=== PATIENT | female | born 1960 | race Caucasian/White ===

== ENCOUNTER 2019-11-29 07:43 | Outpatient (CLI) | payer OTHER, SELFPAY ==
--- NOTE | 2019-11-29 07:45 | MM_ITS ---
WS: [id number] BILATERAL DIGITAL SCREENING MAMMOGRAPHY WITH CAD CLINICAL INFORMATION: SCREENING HISTORY: Screening mammogram. No current complaints. COMPARISON: TECHNIQUE: Bilateral CC and MLO views. FINDINGS: Scattered fibroglandular densities bilaterally. No suspicious focal mass, asymmetry, calcifications, or architectural distortion. No evidence of malignancy. MM/[place] [id number] IMPRESSION: BI-RADS: 1-Negative FOLLOW UP: 1 Year Follow-up Recommend return to annual screening mammography.
== END 2019-11-29 07:44 | disposition home or self-care (01) ==
LOC: RADSHAW 07:44
PROVIDERS: PCP Nurse Practitioner; Visit Provider Nurse Practitioner
DX: Z12.31 Encounter for screening mammogram for malignant neoplasm of breast (principal)
CPT/HCPCS: 77067

== ENCOUNTER 2020-06-17 13:08 | Inpatient (IN) | payer OTHER, SELFPAY ==
[2020-06-17] VITALS (10 sets, daily range): BP systolic 87–115; BP diastolic 52–67; PULSE 62–102; RESP 14–26; TEMP 36.6–37.8; O2SAT 94–100; BMI 26.6
[2020-06-17 16:28] LABS: Add Urine Microscopic? NO
[2020-06-17 16:53] LABS: Bilirubin Urine Neg (Negative); Blood Urine Neg (Negative); Glucose Urine UA Norm (Normal); Ketones Urine 1+ (Negative); Leukocyte Esterase Urine Negative (Negative); Nitrate Urine Negative (Negative); Protein Urine Neg (Negative); Urine Appearance Clear (CLEAR); Urine Color Yellow (Yellow); Urobilinogen Urine Norm (Negative); pH Urine 5 (5-7)
--- NOTE | 2020-06-17 17:00 | CTR_ITS ---
PROCEDURE INFORMATION: Exam: CT Abdomen And Pelvis With Contrast Exam date and time: 06/17/2020 5:12 PM Age: 59 years old Clinical indication: Nausea; Abdominal pain; Localized; Right lower quadrant (rlq); Prior surgery; Surgery type: Partial hyst, bladder; Additional info: Abd pain TECHNIQUE: Imaging protocol: Computed tomography of the abdomen and pelvis with contrast. Radiation optimization: All CT scans at this facility use at least one of these dose optimization techniques: automated exposure control; mA and/or kV adjustment per patient size (includes targeted exams where dose is matched to clinical indication); or iterative reconstruction. Contrast material: OMNI 300; Contrast volume: 95 ml; Contrast route: INTRAVENOUS (IV); COMPARISON: No relevant prior studies available. RADIATION DOSE METRICS: Total DLP (mGy-cm): 563.71 FINDINGS: Liver: Several circumscribed low-attenuation lesions in the liver, at least 3 separate lesions. The lesions are non simple in appearance, but otherwise incompletely characterized on single-phase imaging. Largest lesion in segment 6 3.2 cm x 3.2 cm. Scattered foci of pneumoperitoneum. Gallbladder and bile ducts: Normal. No calcified stones. No ductal dilation. Pancreas: Normal. No ductal dilation. Spleen: Normal. No splenomegaly. Adrenal glands: Normal. No mass. Kidneys and ureters: Normal. No hydronephrosis. Stomach and bowel: Negative for small bowel obstruction. Diverticulosis coli. Appendix: Appendix is abnormally dilated. Calcified appendicolith at the base. Periappendiceal fat stranding. Small collection of extraluminal gas and fluid at the distal tip of the appendix. Intraperitoneal space: Free fluid in the pericolic gutters and dependently in the pelvis. Vasculature: Unremarkable. No abdominal aortic aneurysm. Lymph nodes: Unremarkable. No enlarged lymph nodes. Urinary bladder: Unremarkable as visualized. Reproductive: Hysterectomy. Bones/joints: Unremarkable. No acute fracture. Soft tissues: Unremarkable. CT/CT abdomen pelvis w con* [id number] IMPRESSION: 1. Perforated acute appendicitis. 2. Early developing periappendiceal abscess within amorphous gas and fluid collection at the distal appendiceal tip. Scattered foci of pneumoperitoneum and small to moderate volume free fluid in the pericolic gutters and dependently in the pelvic cul-de-sac. 3. Incidental finding of several liver masses. Non simple features. Most likely hemangiomas, however incompletely assessed by this examination. An outpatient multiphasic CT or MRI with and without contrast utilizing liver protocol is recommended. Radiation Dose CTDIVOL = (mGy): DLP = 563.71 (mGy-cm)
--- NOTE | 2020-06-17 17:01 | W.ED.ABDPA2 ---
HPI - Abdominal Pain General: Chief Complaint: Abdominal Pain Stated Complaint: SEVERE AB PAIN SINCE WEDNESDAY Time Seen by Provider: 06/17/20 16:56 History of Present Illness: HPI narrative: 59-year-old female who began having abdominal pain 2 days ago. Is progressively worsened initially was periumbilical and rather diffuse has migrated to the right lower quadrant. She has lost appetite she has had some vomiting she has not been able to have a bowel movement. Low-grade subjective fever along with it. Even mild bumps in the road on the way to the emergency room cause severe pain. On arrival here measured temp is 100.1. Her last meal was yesterday. She has previously had a hysterectomy and bladder suspension. MD elicited complaint: abdominal pain Pertinent past history: constipation Onset (ago): day(s) (2) Pain Consistency: constant Location: Periumbilical Severity: severe Quality: stabbing Radiation: other (Right groin) Migration to: RLQ Exacerbating factors: vomiting, movement and other (Palpation) Relieving factors: rest Associated Symptoms: Reports anorexia, change in bowel habits, GI cramping, nausea, poor appetite and vomiting; Denies belching, bloating, change in stool character, chills, coffee ground emesis, constipation, diarrhea, dyspepsia, dysuria, excessive flatus, fever(s), heartburn, hematochezia, hematuria, hematemesis, fecal incontinence, loose stools, melena and syncope Review of Systems Const: Denies: fever(s) or chills ENMT: Denies: throat pain, ear or mastoid pain, nasal discharge or nasal congestion Card: Denies: syncope Resp: Denies: dyspnea, productive cough or non-productive cough GI: Reports: nausea, vomiting, GI cramping and change in bowel habits; Denies: hematemesis, coffee ground emesis, heartburn, diarrhea, constipation, bloating, belching, excessive flatus, fecal incontinence, change in stool character, hematochezia or melena : Denies: dysuria or hematuria Skin/Breast: Denies: rash or pruritus Physical Exam Const: COMMON NORMALS: no acute distress GENERAL APPEARANCE: cooperative and comfortable ORIENTATION/CONSCIOUSNESS: Yes awake, Yes oriented to person, Yes oriented to place and Yes oriented to time HENMT: COMMON NORMALS: normocephalic, atraumatic and hearing grossly normal bilaterally HEAD & SCALP: normocephalic and atraumatic Neck/C-Spine: COMMON NORMALS: no JVD Resp: COMMON NORMALS: normal respiratory effort, No retractions, No use of accessory muscles and clear to auscultation bilaterally AUSCULTATION: clear to auscultation bilaterally Cardio: COMMON NORMALS: no JVD, regular rate, regular rhythm and No murmurs present (Cardio) RATE: regular rate RHYTHM: regular rhythm GI: AUSCULTATION: Yes Absent bowel sounds PALPATION: Yes Tenderness to palpation present (GI) (At McBurney's point) Details: RLQ and Yes Guarding due to palpation present (GI) in the RLQ Extremity: COMMON NORMALS: normal to inspection, capillary refill normal, no clubbing, cyanosis or edema, no calf tenderness and no pedal edema Neuro: SENSORIUM/ORIENTATION: Yes oriented to person, Yes oriented to place and Yes oriented to time Skin: COMMON NORMALS: no rashes or lesions noted GENERAL SKIN EXAM: no rashes or lesions noted Course Vital Signs: Vital signs: Vital Signs Temperature 100.1 F H 06/17/20 13:18 Pulse Rate 102 H 06/17/20 13:18 Respiratory Rate 18 06/17/20 17:57 Blood Pressure 104/67 06/17/20 13:18 Pulse Oximetry 98 06/17/20 13:18 MDM - Abdominal Pain MDM Narrative: Medical decision making narrative: Perforated appendicitis with pneumoperitoneum and appendiceal abscess. Have discussed with Dr. Rhodes. We will admit started on Zosyn and he will see on the floor. Pain medication as needed. Lab Data: Labs: Lab Results 06/17/20 Range/Units 16:15 Urine Color Yellow (Yellow) Urine Appearance Clear (CLEAR) Urine pH 5 (5-7) Ur Specific Gravit y 1.020 (1.005-1.030) Urine Protein Neg (Negative) Urine Glucose (UA) Norm (Normal) Urine Ketones 1+ H (Negative) Urine Blood Neg (Negative) Urine Nitrate Negative (Negative) Urine Bilirubin Neg (Negative) Urine Urobilinogen Norm (Negative) mg/dL Ur Leukocyte Morelia ase Negative (Negative) Discharge Plan Discharge Patient Disposition: Admitted As Inpatient Clinical Impression: Acute appendicitis with perforation and peritoneal abscess Condition: Stable Coding Level of Care Code ED 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
[2020-06-17] MEDS: iohexol 300 mg/mL 100 mL Btl IV (17:28)
[2020-06-17] MEDS: morphine 4 mg/mL SDV 1 mL IVP (17:57)
[2020-06-17] MEDS: ondansetron 2 mg/ML SDV 2 mL 4 MG IVP (17:58)
[2020-06-17] MEDS: piperacillin-tazobactam 4.5 GM in sodium chloride 0.9% (plus) 50 ML IV (17:59)
[2020-06-17] MEDS: sodium chloride 0.9% 1,000 ML 999 ML IV (18:04)
[2020-06-17 18:07] LABS: Basophils % 0.4 %; Eosinophils # 1.5 10^3/uL (0.0-0.8); Eosinophils % 30.5 %; Hematocrit 35.7 % (37.0-47.0); Hemoglobin 11.7 g/dL (11.5-15.3); Lymphocytes # 0.4 10^3/uL (0.8-4.8); Lymphocytes % 7.8 %; Mean Corpuscular HGB Conc 32.8 g/dL (30.0-36.0); Mean Corpuscular Hemoglobin 28.9 pg (28.0-34.0); Mean Corpuscular Volume 88.1 fL (81-99); Mean Platelet Volume 9.3 fL (7.4-10.4); Monocytes # 0.7 10^3/uL (0.2-0.9); Monocytes % 13.6 %; Neutrophils # 2.38 10^3/uL (1.8-7.7); Neutrophils % 47.5 %; Nucleated Red Blood Cells % 0 %; Platelet Count 245 10^3/cmm (130-400); Red Blood Count 4.05 10^6/uL (4.1-5.3); Red Cell Distribution Width 11.8 % (12.1-15.1)
[2020-06-17 18:21] LABS: Alanine Aminotransferase 10 U/L (0-33); Albumin Level 3.6 g/dL (3.5-5.2); Alkaline Phosphatase 58 IU/L (35-105); Anion Gap 15.1 (5-19); Aspartate Amino Transferase 13 U/L (0-32); Blood Urea Nitrogen 16 mg/dL (6-20); Calcium 8.2 mg/dL (8.5-10.5); Carbon Dioxide 21 mmol/L (22-29); Chloride 100 mmol/L (98-107); Glomerular Filtration Rate 42.2 mL/min (90-130); Glucose 123 mg/dL (65-115); Lipase 10 U/L (13-60); Osmolality Calculated 277 mOsm/kg (285-295); Potassium 4.1 mmol/L (3.5-5.1); Sodium 132 mmol/L (136-145); Total Bilirubin 1.2 mg/dL (0.15-1.2); Total Protein 6.6 g/dL (6.6-8.7)
[2020-06-17 18:22] LABS: Lactic Sepsis W/Reflex 2.1 mmol/L (0.5-2.2)
[2020-06-17] MEDS: sodium chloride 0.9% 1,000 ML 30 ML IV ×2 (19:07→23:06)
--- NOTE | 2020-06-17 19:28 | P.HP_ITS ---
Providers/Chief Complaint Admitting Physician: Brayan Rhodes MD Primary Care Provider: Elissa Rdz APN Chief Complaint: SEVERE AB PAIN SINCE WEDNESDAY History of Present Illness Nirmala Bales is a 59 year old female who presented to the ER today with 2-day history of abdominal pain and nausea. Patient states that she initially started with generalized abdominal pain 2 days ago which then localized to the right lower quadrant and subsequently became generalized again. Patient had nausea and only vomited in the ER waiting room. She denies any chills but had some low-grade fevers. Denies any constipation or diarrhea. Her last colonoscopy was 5 or 6 years ago due to her mother having colon cancer. Review of Systems General: Reports: 10 or more systems reviewed and unremarkable except in HPI and below Medications/Allergies Allergies Allergy/AdvReac Type Severity Reaction Status Date / Time No Known Allergies Allergy Verified 06/17/20 13:18 PFSH Acute PFSH: Surgical History History of bladder suspension procedure S/P partial hysterectomy Status post colonoscopy Status post shoulder surgery Vitals/I&O/Wt Last Vital Signs Temp 100.1 F H 06/17/20 19:09 Pulse 91 06/17/20 19:09 Resp 20 H 06/17/20 19:09 BP 95/52 06/17/20 19:09 Pulse Ox 98 06/17/20 19:09 Weight last 48 hrs Weight 170 lb Physical Exam Narrative: EXAM NARRATIVE: HEENT: Normocephalic Eye: Sclera /conjunctiva normal Respiratory and chest: Bilateral clear breath sounds on auscultation Cardiovascular: Normal S1 and S2 heart sounds Abdomen: Soft to palpation, generalized tenderness, maximal tenderness in the right lower quadrant, no guarding or rigidity Neurological: Oriented to place person and time Skin: Intact, no lesions appreciated on gross exam Data : 06/17/20 17:50 06/17/20 17:50 Micro: Microbiology 06/17/20 17:50 Blood Culture - Preliminary Blood SPECIMEN COLLECTED 06/17/20 17:50 Blood Culture - Preliminary Blood SPECIMEN COLLECTED A&P Assessment and plan (1) Acute appendicitis with perforation and peritoneal abscess: 59-year-old female with generalized abdominal pain, nausea and one episode of vomiting her white count is [address] abdomen pelvis showed findings concerning for acute perforated appendicitis with right paracolic fluid collection as well as free air. Discussed the findings with the patient Plan for laparoscopic possible open appendectomy Procedure, risks, benefits and alternatives have been discussed with the patient who wishes to proceed with surgery. 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
[2020-06-17 19:45] LABS: Reflex Lactate Order REFLEX LACTIC ORDERD
--- NOTE | 2020-06-17 19:57 | ANES.PREANE2 ---
Pre-Anesthetic Assessment Pre-Anesthetic Assessment: Height/Weight: Height 1.7 m Weight 77.111 kg Temp Pulse Resp BP Pulse Ox 100.1 F H 91 20 H 95/52 98 06/17/20 19:09 06/17/20 19:09 06/17/20 19:09 06/17/20 19:09 06/17/20 19:09 Preop Diagnosis: Acute perforated appendicitis Proposed Procedure: Operation Date: 06/17/20 18:20 Proposed Procedures p Laparoscopic Appendectomy(Not Applicable) - Brayan Rhodes MD Was Beta León taken within 24 hours: N/A Last intake: Intake Last Liquid Date 06/17/20 Last Liquid Time 10:00 Last Solid Date 06/16/20 Last Solid Time 07:00 Social: Social History: No alcohol and No tobacco Exam: Pre-Anes Outpt Exam: alert, oriented x 3, clear to auscultation bilaterally and regular rate & rhythm Airway: Submandibular: WNL Cervical ROM: WNL MP: 2 Dentition: Full GI: Comments: acute abdomen with abscess Anesthetic Plan: ASA status: 2E Anesthesia: General Other: Mod RSI Risk of > 500 ml blood loss (7ml/kg in children): No PFSH Anesthesia PFSH: Surgical History History of bladder suspension procedure S/P partial hysterectomy Status post colonoscopy Status post shoulder surgery Data Anesthesia CBC & Chem 7: 06/17/20 17:50 06/17/20 17:50 Other Labs: Laboratory Results - last 48 hr 06/17/20 06/17/20 06/17/20 16:15 17:50 17:50 WBC 5.0 RBC 4.05 L Hgb 11.7 Hct 35.7 L MCV 88.1 MCH 28.9 MCHC 32.8 RDW 11.8 L Plt Count 245 MPV 9.3 Neut % (Auto) 47.5 Lymph % (Auto) 7.8 Lucas % (Auto) 13.6 Eos % (Auto) 30.5 Baso % (Auto) 0.4 Neut # (Auto) 2.38 Lymph # (Auto) 0.4 L Lucas # (Auto) 0.7 Eos # (Auto) 1.5 H Baso # (Auto) 0.0 Nucleated RBC % (auto) 0 Nucleated RBCs # 0.0 Sodium 132 L Potassium 4.1 Chloride 100 Carbon Dioxide 21 L Anion Gap 15.1 BUN 16 Creatinine 1.3 H GFR Calculation 42.2 L Glucose 123 H Calculated Osmolality 277 L Lactic Acid Calcium 8.2 L Total Bilirubin 1.2 AST 13 ALT 10 Alkaline Phosphatase 58 Total Protein 6.6 Albumin 3.6 Globulin 3.0 Lipase 10 L Urine Color Yellow Urine Appearance Clear Urine pH 5 Ur Specific [place] 1.020 Urine Protein Neg Urine Glucose (UA) Norm Urine Ketones 1+ H Urine Blood Neg Urine Nitrate Negative Urine Bilirubin Neg Urine Urobilinogen Norm Ur Leukocyte Esterase Negative 06/17/20 17:50 WBC RBC Hgb Hct MCV MCH MCHC RDW Plt Count MPV Neut % (Auto) Lymph % (Auto) Lucas % (Auto) Eos % (Auto) Baso % (Auto) Neut # (Auto) Lymph # (Auto) Lucas # (Auto) Eos # (Auto) Baso # (Auto) Nucleated RBC % (auto) Nucleated RBCs # Sodium Potassium Chloride Carbon Dioxide Anion Gap BUN Creatinine GFR Calculation Glucose Calculated Osmolality Lactic Acid 2.1 Calcium Total Bilirubin AST ALT Alkaline Phosphatase Total Protein Albumin Globulin Lipase Urine Color Urine Appearance Urine pH Ur Specific [place] Urine Protein Urine Glucose (UA) Urine Ketones Urine Blood Urine Nitrate Urine Bilirubin Urine Urobilinogen Ur Leukocyte Esterase Micro: Microbiology 06/17/20 17:50 Blood Culture - Preliminary Blood SPECIMEN COLLECTED 06/17/20 17:50 Blood Culture - Preliminary Blood SPECIMEN COLLECTED Cardiac Studies: No Data to Display
--- NOTE | 2020-06-17 20:52 | SUR.PHASEI ---
pt sleeps if not disturbed , pt's at bedsie, continous 92 sat probe on, side rails up and call light within reach, iv patent and at kvo rate.
--- NOTE | 2020-06-17 21:24 | SUR.PHASEI ---
PT AWAKES EASILY PT UP TO BR VOIDS CLEAR URINE , MOD AMT NOT MEASURED PT AMBULATES BACK TO BED WITH NO DISTRESS, WARM BLALNKETS TO PT X 2 PER PT REQUEST.
--- NOTE | 2020-06-17 22:36 | PM.OP ---
Operative Report Date of procedure: June 17, 2020 Pre-op Diagnosis: Acute perforated appendicitis Post-op Diagnosis: Acute perforated appendicitis with large amount of purulent fluid in the right paracolic gutter and pelvis Procedure Done: Laparoscopic appendectomy Specimens removed/disposition: Appendix Surgeon: Brayan Rhodes Anesthesia: General Condition: stable Disposition: PACU Procedure: The patient was taken to the Operating Room and intubated under general anesthesia after antibiotic had been administered. Using a 15 blade, a 1-cm infraumbilical incision was made and using open Paddy technique, the peritoneal cavity was entered. A 12mm port with balloon was placed and 14 mm of pneumoperitoneum was created and 10-mm 30 degree scope was introduced. Two separate 5mm ports were placed in the left and right lower quadrant under direct visualization. The appendix was noted in the right lower quadrant and appeared acutely inflamed.. There was a large amount of purulent fluid in the right paracolic gutter as well as pelvis which was irrigated and suctioned out using [place] forceps, an opening was made in the mesoappendix near the base of the appendix. An Endo MARK stapler 45mm long 3.5mm blue load was introduced to divide the appendix at it's base. Using electrocautery, the mesoappendix including the appendicular artery was divided. There was no bleeding noted and the staple line appeared intact. The peritoneal cavity was irrigated with 4 L of warm saline and an EndoCatch bag was introduced to remove the appendix. A 10 flat ANGEL drain was placed in the pelvis and the right paracolic gutter through the suprapubic port. All three ports were removed under direct visualization and there was no bleeding noted on the port sites. 10 cc of 0.5% Marcaine was infiltrated at the port sites. The fascia at the umbilical port was closed using figure of eight 0-Vicryl sutures and subcutaneous tissue was approximated using 3-0 Vicryl and skin at all 3 port sites was closed using 4-0 Monocryl and surgical glue. The patient was extubated and transferred recovery room in stable condition.
[2020-06-18] VITALS (15 sets, daily range): BP systolic 90–110; BP diastolic 55–69; PULSE 75–92; RESP 16–19; TEMP 36.5–38.4; O2SAT 92–98
[2020-06-18] MEDS: famotidine 20 mg/2 mL INJ IVP ×3 (00:55→23:31)
[2020-06-18] MEDS: D5-NS 0.45% + KCL 20 mEq 20 MEQ/1,000 ML BAG 100 MEQ IV ×2 (00:55→08:34)
[2020-06-18 02:43] LABS: Hematocrit 33.1 % (37.0-47.0); Hemoglobin 10.7 g/dL (11.5-15.3); Mean Corpuscular HGB Conc 32.3 g/dL (30.0-36.0); Mean Corpuscular Hemoglobin 28.8 pg (28.0-34.0); Mean Platelet Volume 9.7 fL (7.4-10.4); Platelet Count 261 10^3/cmm (130-400); Red Blood Count 3.72 10^6/uL (4.1-5.3); Red Cell Distribution Width 11.9 % (12.1-15.1); White Blood Count 8.3 10^3/uL (4.0-10.0)
[2020-06-18 03:00] LABS: Alanine Aminotransferase 8 U/L (0-33); Albumin Level 3.1 g/dL (3.5-5.2); Alkaline Phosphatase 53 IU/L (35-105); Anion Gap 12.5 (5-19); Aspartate Amino Transferase 14 U/L (0-32); Blood Urea Nitrogen 13 mg/dL (6-20); Carbon Dioxide 20 mmol/L (22-29); Chloride 107 mmol/L (98-107); Globulin 3.1 g/dL (1.3-4.6); Glomerular Filtration Rate 73.9 mL/min (90-130); Glucose 143 mg/dL (65-115); Osmolality Calculated 283 mOsm/kg (285-295); Potassium 4.5 mmol/L (3.5-5.1); Sodium 135 mmol/L (136-145); Total Bilirubin 1.5 mg/dL (0.15-1.2); Total Protein 6.2 g/dL (6.6-8.7)
[2020-06-18 03:06] LABS: Lactic Acid level (Lactate) 1.3 mmol/L (0.5-2.2)
[2020-06-18 03:16] LABS: Slide Review Slide Review Perform
[2020-06-18 03:31] LABS: Absolute Segmented Neutrophil 2.4 10/cmm (1.6-7.1); Band Neutrophils Absolute 3.5 10^3/cmm (0.0-1.2); Eosinophils 0 %; Lymphocytes 15 %; Monocytes Absolute 0.6 10^3/cmm (0.1-0.6); Segmented Neutrophils 29 %; Total Cells Counted 100 (0-100)
[2020-06-18 03:32] LABS: Absolute Neutrophil 5.9 10^3/cmm (1.4-6.5); Burr Cells 1+; Giant Platelets Trace; Platelet Estimate Normal (Normal)
--- NOTE | 2020-06-18 06:02 | ANE.PACU2 ---
Inpatient post-anesthesia follow up: Airway intact: Yes Vital signs: Temperature 97.9 F Pulse Rate [Left] 102 Pulse Rate 82 Respiratory Rate 18 Blood Pressure [Le ft Arm] 104/67 Blood Pressure 93/61 Pulse Oximetry 92 Oxygen Delivery Me thod Room Air Oxygen Flow Rate 8 Fraction of Inspir ed Oxygen Hydration adequate: Yes Nausea and vomiting: No Pain level: 3 Mental status: Baseline
[2020-06-18] MEDS: sennosides-docusate Tablet 1 TAB PO ×2 (08:34→17:21)
[2020-06-18] MEDS: enoxaparin 40 mg/0.4 mL Syringe SUBCUT (08:35)
--- NOTE | 2020-06-18 10:04 | PC.CHAP ---
Pastoral Care Encounter/Spiritual Assessment Type of Contact [] Declined numerical analysis group manager visit [] Patient/Family/Request visit [] Outpatient visit [] Follow-up visit [] Physician referral [] Code/Alert [x] Routine visit [] Staff referral [] Actively dying [] Patient sleeping [] Family support [] [] Out of room [] Palliative care [] [] Receiving care in room [] Pre-surgical visit [] Trauma [] Long length of stay [] ICU visit [] Other: Relational/Emotional Strength [x] Patient feels connected with others/family/visitors/staff [] Distress [] Loneliness/isolation [] Abandonment Spirituality of Patient [x] Person of Evelina [x] Attends Muslim of their Evelina [x] Believes in Prayer [] Reads Bible or Holiness materials [x] There are Spiritual issues to be addressed Principal Secretary Interventions [x] Prayer [x] Active listening [] Non-anxious presence [] Spiritual/emotional support [] Crisis/trauma care [] Spiritual counseling [] Bereavement support [] Provided bereavement packet [] Provided Bible/devotional materials [] Provided toy/stuffed animal, coloring book to patient or family member [] Provided Communion [] Anointing/Morrison [] Salvation [x] Completed spiritual assessment [] Other: Impact on Illness or Injury [] Angry [] Fearful [] Anxious [] Often cries [] Exhaustion [] Unable to work [] Unable to attend mandaeism [] Unable to walk/stand [] Unable to read [] Unable to drive [] Unable to eat/drink [] Unable to sleep [] Unable to be with family [] Patient intubated [] Other: Summary patient feeling better today Time spent with patient 10 min
[2020-06-18] MEDS: piperacillin-tazobactam 3.375 GM in sodium chloride 0.9% (plus) 50 ML IV ×2 (11:37→19:51)
[2020-06-18] MEDS: acetaminophen 325 mg Tablet 650 MG PO ×2 (11:59→21:32)
[2020-06-18 16:40] LABS: Glucose Point of Care 179 mg/dL (70-110)
--- NOTE | 2020-06-18 16:52 | P.PN_ITS ---
Subjective Subjective: Interval history: Had some cramping abdominal pain, denies any nausea vomiting, tolerating clears, no BM Vitals/I&O/Wt Last Vital Signs Temp 99.0 F 06/18/20 15:39 Pulse 92 06/18/20 15:39 Resp 19 H 06/18/20 15:39 BP 110/66 06/18/20 15:39 Pulse Ox 97 06/18/20 15:39 06/18/20 06/18/20 06/18/20 06:59 14:59 22:59 Intake Total 4345 / 5345 340 / 340 Output Total 675 / 680 430 / 770 340 / 770 Balance 3670 / 4665 -90 / -430 -340 / -430 Weight last 48 hrs Weight 170 lb Physical Exam Narrative: EXAM NARRATIVE: Abdomen: Soft, distended, tender, incision clean dry intact, ANGEL drain output is serosanguineous/purulent Data : 06/18/20 02:12 06/18/20 02:12 Micro: Microbiology 06/17/20 17:50 Blood Culture - Preliminary Blood SPECIMEN COLLECTED 06/17/20 17:50 Blood Culture - Preliminary Blood SPECIMEN COLLECTED A&P Assessment and plan (1) S/P laparoscopic appendectomy: 59-year-old female status post laparoscopic appendectomy for perforated appendicitis, afebrile, hemodynamically stable with postop ileus Continue IV Zosyn Daily labs Lovenox for DVT prophylaxis Pepcid for GI prophylaxis Ambulate ad shekhar. Continue clear liquid diet Senna docusate for bowel regimen Status: Acute Attestations Medical Necessity Statement*: Acute appendicitis, perforated status post appendectomy requiring continued inpatient stay to ensure resolution of ileus Coding Level of Care Code Acute Accredited Pharmacy Technician for [facility] Fwd Diagnoses S/P laparoscopic appendectomy Z90.49
[2020-06-18] MEDS: sodium chlor 0.9% + KCl 20 mEq 20 MEQ/1,000 ML BAG 100 MEQ IV (21:35)
--- NOTE | 2020-06-18 22:18 | PC.NURSE ---
PT SITTING IN BED ON THEIR PHONE.
--- NOTE | 2020-06-18 22:19 | PC.NURSE ---
PT SITTING IN BED ON THEIR PHONE.
[2020-06-18 22:48] LABS: Bilirubin Urine Neg (Negative); Blood Urine 2+ (Negative); Glucose Urine UA Norm (Normal); Ketones Urine Negative (Negative); Leukocyte Esterase Urine Negative (Negative); Nitrate Urine Negative (Negative); Protein Urine Neg (Negative); Urine Appearance Clear (CLEAR); Urine Color Yellow (Yellow); Urobilinogen Urine Norm (Negative); pH Urine 5 (5-7)
[2020-06-18 22:50] LABS: Bacteria Urine 1+ /hpf; Mucus Urine TRACE /hpf; RBC Urine RARE /hpf (0-2); Squamous Epithelial Cell Urine 0-4 /hpf (0-5); WBC Urine RARE /hpf (0-5)
[2020-06-18 22:51] LABS: Add Urine Culture? No; Amorphous Sediment Urine TRACE /hpf
[2020-06-19 03:11] LABS: Basophils # 0.1 10^3/uL (0.0-0.1); Basophils % 0.5 %; Eosinophils # 0.1 10^3/uL (0.0-0.8); Eosinophils % 0.6 %; Hematocrit 28.7 % (37.0-47.0); Hemoglobin 9.2 g/dL (11.5-15.3); Lymphocytes # 1.3 10^3/uL (0.8-4.8); Lymphocytes % 11.6 %; Mean Corpuscular HGB Conc 32.1 g/dL (30.0-36.0); Mean Corpuscular Hemoglobin 28.8 pg (28.0-34.0); Mean Corpuscular Volume 89.7 fL (81-99); Mean Platelet Volume 9.8 fL (7.4-10.4); Monocytes # 0.6 10^3/uL (0.2-0.9); Monocytes % 5.7 %; Neutrophils # 8.79 10^3/uL (1.8-7.7); Neutrophils % 81.1 %; Nucleated Red Blood Cells % 0 %; Platelet Count 260 10^3/cmm (130-400); White Blood Count 10.8 10^3/uL (4.0-10.0)
[2020-06-19 03:17] LABS: Anion Gap 9.9 (5-19); Blood Urea Nitrogen 7 mg/dL (6-20); Calcium 8.4 mg/dL (8.5-10.5); Carbon Dioxide 24 mmol/L (22-29); Chloride 106 mmol/L (98-107); Glomerular Filtration Rate 86.2 mL/min (90-130); Glucose 96 mg/dL (65-115); Osmolality Calculated 280 mOsm/kg (285-295); Potassium 3.9 mmol/L (3.5-5.1); Sodium 136 mmol/L (136-145)
[2020-06-19] MEDS: acetaminophen 325 mg Tablet 650 MG PO (03:40)
[2020-06-19] MEDS: piperacillin-tazobactam 3.375 GM in sodium chloride 0.9% (plus) 50 ML IV ×3 (03:40→19:30)
[2020-06-19 04:38] VITALS: BP 100/66; PULSE 86; RESP 18; TEMP 37; O2SAT 95
[2020-06-19] MEDS: sodium chlor 0.9% + KCl 20 mEq 20 MEQ/1,000 ML BAG 100 MEQ IV (06:24)
--- NOTE | 2020-06-19 07:04 | PC.NURSE ---
pt to floor with pacu nurse approx 2140, pacu nurse stated patient would be getting a unit of blood. Brought blood up from surgery in red cooler from [facility]. Blood to floor and administered immediately by Dina Melendez.
[2020-06-19 07:51] VITALS: BP 135/75; PULSE 78; RESP 18; TEMP 37.1; O2SAT 98
[2020-06-19] MEDS: sennosides-docusate Tablet 1 TAB PO ×2 (08:10→17:53)
[2020-06-19] MEDS: enoxaparin 40 mg/0.4 mL Syringe SUBCUT (08:11)
[2020-06-19 10:30] LABS: Glucose Point of Care 131 mg/dL (70-110)
[2020-06-19] MEDS: famotidine 20 mg/2 mL INJ IVP (10:58)
--- NOTE | 2020-06-19 12:49 | PM.PN ---
Subjective Subjective: Interval history: Patient denies significant pain, no nausea or vomiting, was febrile overnight Vitals/I&O/Wt Last Vital Signs Temp 98.7 F 06/19/20 07:51 Pulse 78 06/19/20 07:51 Resp 18 06/19/20 07:51 BP 135/75 06/19/20 07:51 Pulse Ox 98 06/19/20 07:51 06/18/20 06/19/20 06/19/20 22:59 06:59 14:59 Intake Total 1200 / 2840 1300 / 2840 660 / 660 Output Total 1840 / 2970 700 / 2970 300 / 300 Balance -640 / -130 600 / -130 360 / 360 Weight last 48 hrs Weight 170 lb Physical Exam Narrative: EXAM NARRATIVE: Abdomen: soft , NT, ND , ANGEL drain slightly purulent Data : 06/19/20 02:24 06/19/20 02:24 Micro: Microbiology 06/18/20 21:20 Blood Culture - Preliminary Blood SPECIMEN COLLECTED 06/18/20 21:15 Blood Culture - Preliminary Blood SPECIMEN COLLECTED 06/17/20 17:50 Blood Culture - Preliminary Blood NEGATIVE TO DATE 06/17/20 17:50 Blood Culture - Preliminary Blood NEGATIVE TO DATE A&P Assessment and plan (1) S/P laparoscopic appendectomy: 59-year-old female status post laparoscopic appendectomy for perforated appendicitis, afebrile, hemodynamically stable with postop ileus, resolving but was febrile overnight Continue IV Zosyn for 24 hours Daily labs Lovenox for DVT prophylaxis Pepcid for GI prophylaxis Ambulate ad shekhar. Advance to GI soft diet Senna docusate for bowel regimen Status: Acute Attestations Medical Necessity Statement*: s/p lap appy requiring 1 more night of inpatient stay. 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
[2020-06-19 16:12] VITALS: BP 125/75; PULSE 72; RESP 17; TEMP 36.6; O2SAT 97
[2020-06-19 17:09] LABS: Glucose Point of Care 97 mg/dL (70-110)
[2020-06-19 19:13] VITALS: BP 109/71; PULSE 84; RESP 18; TEMP 36.8; O2SAT 95
[2020-06-20 00:01] VITALS: BP 120/75; PULSE 76; RESP 18; TEMP 37.1; O2SAT 97
[2020-06-20 02:35] LABS: Basophils # 0.1 10^3/uL (0.0-0.1); Basophils % 0.6 %; Eosinophils # 0.3 10^3/uL (0.0-0.8); Eosinophils % 2.1 %; Hematocrit 27.2 % (37.0-47.0); Hemoglobin 8.9 g/dL (11.5-15.3); Lymphocytes # 1.6 10^3/uL (0.8-4.8); Lymphocytes % 11.7 %; Mean Corpuscular HGB Conc 32.7 g/dL (30.0-36.0); Mean Corpuscular Hemoglobin 28.3 pg (28.0-34.0); Mean Corpuscular Volume 86.3 fL (81-99); Monocytes % 7.6 %; Neutrophils # 10.33 10^3/uL (1.8-7.7); Neutrophils % 77.5 %; Nucleated Red Blood Cells % 0 %; Platelet Count 269 10^3/cmm (130-400); Red Blood Count 3.15 10^6/uL (4.1-5.3); Red Cell Distribution Width 12.2 % (12.1-15.1); White Blood Count 13.3 10^3/uL (4.0-10.0)
[2020-06-20 02:54] LABS: Anion Gap 10.9 (5-19); Blood Urea Nitrogen 7 mg/dL (6-20); Calcium 7.9 mg/dL (8.5-10.5); Carbon Dioxide 23 mmol/L (22-29); Chloride 107 mmol/L (98-107); Glucose 108 mg/dL (65-115); Osmolality Calculated 283 mOsm/kg (285-295); Potassium 3.9 mmol/L (3.5-5.1); Sodium 137 mmol/L (136-145)
[2020-06-20] MEDS: acetaminophen 325 mg Tablet 650 MG PO ×2 (04:02→13:14)
[2020-06-20] MEDS: piperacillin-tazobactam 3.375 GM in sodium chloride 0.9% (plus) 50 ML IV ×3 (04:05→19:49)
[2020-06-20 04:16] VITALS: BP 120/78; PULSE 84; RESP 18; TEMP 36.7; O2SAT 96
[2020-06-20] MEDS: sennosides-docusate Tablet 1 TAB PO ×2 (08:38→18:34)
[2020-06-20 08:44] VITALS: BP 105/69; PULSE 79; RESP 17; TEMP 36.4; O2SAT 99
--- NOTE | 2020-06-20 09:44 | P.PN_ITS ---
Subjective Subjective: Interval history: patient tolerating regular diet, has been having BM Vitals/I&O/Wt Last Vital Signs Temp 97.6 F 06/20/20 08:44 Pulse 79 06/20/20 08:44 Resp 17 06/20/20 08:44 BP 105/69 06/20/20 08:44 Pulse Ox 99 06/20/20 08:44 06/19/20 06/20/20 06/20/20 22:59 06:59 14:59 Intake Total 1360 / 2070 50 / 2070 360 / 360 Output Total 460 / 2860 2100 / 2860 Balance 900 / -790 -2050 / -790 350 / 350 Physical Exam Narrative: EXAM NARRATIVE: Abdomen: soft NT, ND, ANGEL drain output is serous Data : 06/20/20 02:25 06/20/20 02:25 Micro: Microbiology 06/18/20 21:20 Blood Culture - Preliminary Blood NEGATIVE TO DATE 06/18/20 21:15 Blood Culture - Preliminary Blood NEGATIVE TO DATE A&P Assessment and plan (1) S/P laparoscopic appendectomy: 59-year-old female status post laparoscopic appendectomy for perforated appendicitis, afebrile, hemodynamically stable with postop ileus resolved, afebrile but wbc is trending up Continue IV Zosyn , add flagyl repeat cbc tomorrow Lovenox for DVT prophylaxis Pepcid for GI prophylaxis Ambulate ad shekhar. GI soft diet Senna docusate for bowel regimen Status: Acute Attestations Medical Necessity Statement*: Acute perforated appendicitis with leukocytosis requiring IV antibiotics Coding Level of Care Code Acute Steward/[employer] Dining Car for [facility] Fwd Diagnoses S/P laparoscopic appendectomy Z90.49
[2020-06-20] MEDS: enoxaparin 40 mg/0.4 mL Syringe SUBCUT (10:00)
[2020-06-20] MEDS: metroNIDAZOLE IV 500 MG/100 ML PREMIX 100 MG IV ×2 (10:02→18:34)
[2020-06-20 11:39] VITALS: BP 122/80; PULSE 80; RESP 18; TEMP 36.7; O2SAT 96
[2020-06-20 20:49] VITALS: BP 122/79; PULSE 83; RESP 18; TEMP 37.4; O2SAT 96
[2020-06-20 22:15] VITALS: TEMP 37.4
[2020-06-21 00:28] VITALS: BP 110/73; PULSE 78; RESP 18; TEMP 36.8; O2SAT 96
[2020-06-21] MEDS: metroNIDAZOLE IV 500 MG/100 ML PREMIX 100 MG IV ×2 (02:25→11:35)
[2020-06-21 02:32] LABS: Basophils # 0.1 10^3/uL (0.0-0.1); Basophils % 0.7 %; Eosinophils # 0.4 10^3/uL (0.0-0.8); Eosinophils % 2.9 %; Hematocrit 29.5 % (37.0-47.0); Hemoglobin 9.4 g/dL (11.5-15.3); Lymphocytes # 2.1 10^3/uL (0.8-4.8); Lymphocytes % 14.6 %; Mean Corpuscular HGB Conc 31.9 g/dL (30.0-36.0); Mean Corpuscular Hemoglobin 28.6 pg (28.0-34.0); Mean Corpuscular Volume 89.7 fL (81-99); Mean Platelet Volume 11.1 fL (7.4-10.4); Monocytes # 1.4 10^3/uL (0.2-0.9); Monocytes % 10.1 %; Neutrophils # 9.87 10^3/uL (1.8-7.7); Neutrophils % 70.6 %; Nucleated Red Blood Cells % 0 %; Platelet Count 240 10^3/cmm (130-400); Red Blood Count 3.29 10^6/uL (4.1-5.3); Red Cell Distribution Width 12.6 % (12.1-15.1)
[2020-06-21 03:21] LABS: Slide Review Slide Review Perform
[2020-06-21] MEDS: piperacillin-tazobactam 3.375 GM in sodium chloride 0.9% (plus) 50 ML IV ×2 (03:28→13:00)
[2020-06-21 05:06] VITALS: BP 107/69; PULSE 76; RESP 18; TEMP 37.2; O2SAT 95
[2020-06-21 08:00] VITALS: BP 107/70; PULSE 86; RESP 16; TEMP 36.3; O2SAT 98
[2020-06-21] MEDS: sennosides-docusate Tablet 1 TAB PO (09:14)
[2020-06-21] MEDS: enoxaparin 40 mg/0.4 mL Syringe SUBCUT (09:14)
[2020-06-21 11:13] VITALS: BP 109/71; PULSE 79; RESP 18; TEMP 37.2; O2SAT 79
--- NOTE | 2020-06-21 12:07 | PC.CHAP ---
Pastoral Care Encounter/Spiritual Assessment Type of Contact [xx] Declined truck bracer visit [] Patient/Family/Request visit [] Outpatient visit [xx] Follow-up visit [] Physician referral [] Code/Alert [] Routine visit [] Staff referral [] Actively dying [] Patient sleeping [] Family support [] [] Out of room [] Palliative care [] [] Receiving care in room [] Pre-surgical visit [] Trauma [] Long length of stay [] ICU visit [] Other: Relational/Emotional Strength [] Patient feels connected with others/family/visitors/staff [] Distress [] Loneliness/isolation [] Abandonment Spirituality of Patient [] Person of Evelina [] Attends Denominational of their Evelina [] Believes in Prayer [] Reads Bible or Spiritism materials [] There are Spiritual issues to be addressed Photofinishing Laboratory Worker Interventions [] Prayer [xx] Active listening [xx] Non-anxious presence [] Spiritual/emotional support [] Crisis/trauma care [] Spiritual counseling [] Bereavement support [] Provided bereavement packet [] Provided Bible/devotional materials [] Provided toy/stuffed animal, coloring book to patient or family member [] Provided Communion [] Anointing/[place] [] Salvation [] Completed spiritual assessment [] Other: Impact on Illness or Injury [] Angry [] Fearful [] Anxious [] Often cries [] Exhaustion [] Unable to work [] Unable to attend restorationist [] Unable to walk/stand [] Unable to read [] Unable to drive [] Unable to eat/drink [] Unable to sleep [] Unable to be with family [] Patient intubated [] Other: Summary Patient expects to be discharged later today. She just wanted to sleep until the Doctor comes in to discharge her. Time spent with patient 3 minutes
--- NOTE | 2020-06-21 15:50 | PM.PN ---
Subjective Subjective: Interval history: Patient denies any abdominal pain, nausea, vomiting, tolerating regular diet, has been afebrile Vitals/I&O/Wt Last Vital Signs Temp 99.0 F 06/21/20 11:13 Pulse 79 06/21/20 11:13 Resp 18 06/21/20 11:13 BP 109/71 06/21/20 11:13 Pulse Ox 79 L 06/21/20 11:13 06/21/20 06/21/20 06/21/20 06:59 14:59 22:59 Intake Total 150 / 1530 630 / 630 Output Total 210 / 1920 1200 / 1200 Balance -60 / -390 -570 / -570 Physical Exam Narrative: EXAM NARRATIVE: Abdomen: Soft, nondistended, nontender, ANGEL drain output has been minimal, this was removed today Data : 06/21/20 02:07 06/20/20 02:25 A&P Assessment and plan (1) S/P laparoscopic appendectomy: 59-year-old female status post laparoscopic appendectomy for perforated appendicitis, afebrile, hemodynamically stable I had extensive discussion with the patient and her about the fact that she has no significant GI symptoms, has been afebrile but she has had persistent white count. 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
--- NOTE | 2020-06-21 15:50 | PM.DCS ---
Discharge Providers Date of Admission: 06/17/20 18:09 Date of Discharge: June 21, 2020 Attending Provider at Admission: Brayan Rhodes MD Attending Provider at Discharge: Brayan Rhodes MD Primary Care Provider: Elissa Rdz APN Diagnoses at Discharge Discharge Diagnosis (1) S/P laparoscopic appendectomy: Status: Acute Reason for Visit Reason for Visit: SEVERE AB PAIN SINCE WEDNESDAY Hospital Course Hospital Course Nirmala Bales is a 59 year old female who presented to the ER today with 2-day history of abdominal pain and nausea. Patient states that she initially started with generalized abdominal pain 2 days ago which then localized to the right lower quadrant and subsequently became generalized again. Patient had nausea and only vomited in the ER waiting room. She denies any chills but had some low-grade fevers. Denies any constipation or diarrhea. Her last colonoscopy was 5 or 6 years ago due to her mother having colon cancer. Patient underwent laparoscopic appendectomy on 06/17/2020. Patient subsequently admitted to the hospital for IV antibiotics due to significant amount of peritoneal contamination noted during surgery. By day 3 patient was tolerating a regular diet, ambulating and having bowel movements. On 06/19/2020 patient was febrile with increasing WBC and therefore was kept in the hospital for continued IV antibiotics. On postop day 12, she had been afebrile for 36 hours and her white count was stable around 14. I discussed in detail with the patient and her about discharge versus staying in the hospital for further IV antibiotics. Since patient has been afebrile, hemodynamically stable with no other evidence of sepsis they wanted to go home. The ANGEL drain was discontinued prior to discharge Discharge Data Data Completed and Pending: Completed Studies During Hospitalization Category Date Time Status CT abdomen pelvis w con* [id number] Stat Cat Scan 06/17/20 17:00 Completed Pathology: Surgic al [PTH] Routine Pth 06/17/20 22:49 Completed Pending at discharge Category Date Time Status ES surgery / GI i mages Routine Exams 06/17/20 21:31 Taken Blood Culture Sta t Lab 06/17/20 17:50 Results Blood Culture Sta t Lab 06/18/20 21:20 Results Labs from last 24 hours 06/21/20 02:07 WBC 14.0 H RBC 3.29 L Hgb 9.4 L Hct 29.5 L MCV 89.7 MCH 28.6 MCHC 31.9 RDW 12.6 Plt Count 240 MPV 11.1 H Neut % (Auto) 70.6 Lymph % (Auto) 14.6 Sunflower % (Auto) 10.1 Eos % (Auto) 2.9 Baso % (Auto) 0.7 Neut # (Auto) 9.87 H Lymph # (Auto) 2.1 Sunflower # (Auto) 1.4 H Eos # (Auto) 0.4 Baso # (Auto) 0.1 Nucleated RBC % (a uto) 0 Nucleated RBCs # 0.0 Vitals: Last Vital Signs Temp 99.0 F 06/21/20 11:13 Pulse 79 06/21/20 11:13 Resp 18 06/21/20 11:13 BP 109/71 06/21/20 11:13 Pulse Ox 79 L 06/21/20 11:13 Discharge Plan Discharge Patient Disposition: Home Condition: Stable Prescriptions: New Zofran 4 mg tablet 4 mg PO Q6H PRN (Reason: nausea and vomiting) Qty: 20 RF: 0 Colace 100 mg capsule 100 mg PO BID Qty: 30 RF: 0 [place] 5-325 mg tablet 1 tab PO Q6H 7 Days Qty: 20 RF: 0 Flagyl 500 mg tablet 500 mg PO Q8H 10 Days Qty: 30 RF: 0 levofloxacin 750 mg tablet 750 mg PO DAILY 10 Days RF: 0 Discharge Orders: Discharge Order (Routine); Ordered 06/21/20 Ordered By: Brayan Rhodes Referrals: Elissa Rdz APN [Primary Care Provider] - 07/04/20 2:00 pm Brayan Rhodes MD [Physician] - 1 week (Call on Wednesday to make an appointment to be seen within a week.) Discharge Diet: Regular Patient Instructions: Hydrocodone/Acetaminophen (By mouth), Metronidazole (By mouth), Laxative, Stool Softeners (By mouth), Ondansetron (By mouth), Levofloxacin (By mouth), Gilberto-Mcdonald Drain Care (GEN), Laparoscopic Appendectomy (DC) Activity Restrictions/Additional Instructions: 1. Up and walking as tolerated. 2. Ok to shower 3. Remove Dermabond dressing in 7-10 days. 4. Do not lift more than 10 pounds. 5. Do not operate heavy machinery or drive while using pain medications. 6. Advised to return to ER or contact my office if there are any signs of infection like, increasing pain, fevers, chills, redness or drainage of pus. 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
[2020-06-21 16:00] VITALS: BP 117/78; PULSE 76; RESP 18; TEMP 36.7; O2SAT 96
[2020-06-21 17:15] VITALS: BP 109/71; PULSE 79; RESP 18; TEMP 37.2; O2SAT 79
--- NOTE | 2020-06-21 17:16 | PC.NURSE ---
Patient discharged at this time in stable condition. Discharge instructions given to patient all questions answered. IV removed tip intact.
== END 2020-06-21 17:00 | disposition home or self-care (01) | DRG 339 ==
LOC: ER 18:07 → MEDSURG 18:43
PROVIDERS: Emergency Medicine; Admitting Provider Surgery; Emergency Provider Family Medicine; PCP Nurse Practitioner; Visit Provider Surgery
PROC: 0DTJ4ZZ Resection of Appendix, Percutaneous Endoscopic Approach (ICD-10-PCS; CPT 44970; principal; 2020-06-17 18:20)
DX: K35.33 Acute appendicitis with perforation, localized peritonitis, and gangrene, with abscess (principal); K91.89 Other postprocedural complications and disorders of digestive system
CPT/HCPCS: 12345; 36415; 36416; 74177; 80048; 80053; 81001; 81003; 82962; 83605; 83690; 85007; 85025; 87040; 88304; 94664; 96372; 99281; J0131; J1100; J1650; J2270; J2405; J2543; J2704; J2710; J3010; J3490; J7030; Q9967; S0030

== ENCOUNTER 2020-11-20 07:48 | Emergency (ER) | payer OTHER, SELFPAY ==
--- NOTE | 2020-11-20 08:35 | XR_ITS ---
WS: [id number] Portable AP upright chest, 11/20/2020 Clinical Data: dyspnea/cough Comparison: None. Findings: Bilateral patchy opacities are seen throughout the lungs. The largest opacity is in the per iphery of the left lower lobe. The heart is at the upper limits of normal. No pneumothorax is seen. T he aortic arch shows mild tortuosity. XR/XR chest 1V portable [id number] Impression: 1. Patchy bilateral pulmonary opacities consistent with pneumonia. 2. Cardiomegaly and atherosclerosis.
--- NOTE | 2020-11-20 08:37 | W.ED.COVID ---
HPI - COVID General: Chief Complaint: COVID symptoms Stated Complaint: low O2 Time Seen by Provider: 11/20/20 07:51 History of Present Illness: HPI Narrative: 60-year-old female comes in complaining of cough cold congestion symptoms small amounts of diarrhea no anosmia. She has generalized myalgias and fever. She has been short of breath cough is been nonproductive. She has no significant past medical history no chronic respiratory disease no coronary artery disease she is not on any immunosuppressive therapies or immune suppressive disease does not have any immunosuppressive diseases. MD complaint: has COVID symptoms Prior covid testing: no COVID 19 common symptoms: positive fever(s), chills, cough, non-productive cough, dyspnea, fatigue, body aches, headache(s), throat pain, nasal congestion, nausea and diarrhea COVID 19 other sytmptoms: positive pleuritic pain; negative chest pain or requiring oxygen Onset (ago): day(s) (7) Severity: mild Treatment prior to arrival: none COVID Results: Nasal/Oral Coronavirus 2019 PCR Pending 11/20/20 08:50 11/20/20 Review of Systems Const: Reports: fever(s), chills, body aches and fatigue ENMT: Reports: throat pain and nasal congestion Card: Denies: chest pain, edema, dyspnea on exertion or orthopnea Resp: Reports: dyspnea and non-productive cough GI: Reports: nausea and diarrhea : Denies: flank pain, difficulty voiding, dysuria, urinary frequency or urinary urgency Skin/Breast: Denies: rash or pruritus Neuro: Reports: headache(s) [facility] ED PFSH: Medical History (Updated 11/20/20 @ 09:50 by Prabhjot Hagen DO) COVID-19 Surgical History History of bladder suspension procedure S/P laparoscopic appendectomy (06/17/20) S/P partial hysterectomy Status post colonoscopy Status post shoulder surgery Physical Exam Const: COMMON NORMALS: no acute distress GENERAL APPEARANCE: cooperative and comfortable ORIENTATION/CONSCIOUSNESS: Yes awake, Yes oriented to person, Yes oriented to place and Yes oriented to time HENMT: COMMON NORMALS: normocephalic, atraumatic and hearing grossly normal bilaterally HEAD & SCALP: normocephalic and atraumatic Neck/C-Spine: COMMON NORMALS: no JVD Resp: COMMON NORMALS: normal respiratory effort, No retractions, No use of accessory muscles and clear to auscultation bilaterally AUSCULTATION: clear to auscultation bilaterally and crackles Cardio: COMMON NORMALS: no JVD, regular rate, regular rhythm and No murmurs present (Cardio) RATE: regular rate RHYTHM: regular rhythm GI: COMMON NORMALS: Soft to palpation and No hepatosplenomegaly present AUSCULTATION: Yes normoactive bowel sounds PALPATION: Yes Soft to palpation, No Tenderness to palpation present (GI), No Guarding due to palpation present (GI) and Yes No hepatosplenomegaly present Extremity: COMMON NORMALS: normal to inspection, capillary refill normal, no clubbing, cyanosis or edema, no calf tenderness and no pedal edema Neuro: SENSORIUM/ORIENTATION: Yes oriented to person, Yes oriented to place and Yes oriented to time Skin: COMMON NORMALS: no rashes or lesions noted GENERAL SKIN EXAM: no rashes or lesions noted Course Vital Signs: Vital signs: Vital Signs Temperature 98.4 F 11/20/20 09:12 Pulse Rate 87 11/20/20 12:35 Respiratory Rate 18 11/20/20 11:10 Blood Pressure 115/74 11/20/20 12:35 Pulse Oximetry 90 11/20/20 12:35 MDM - COVID MDM Narrative: Medical decision making narrative: Clinically it appears that the patient does have Covid. She has an obvious exposure source with her testing positive her chest x-ray is classic for Covid she is requiring oxygen and think she can be discharged home with dexamethasone with oxygen support follow-up if not improving. COVID Results: Nasal/Oral Coronavirus 2019 PCR Pending 11/20/20 08:50 11/20/20 Discharge Plan Discharge Patient Disposition: Home Clinical Impression: COVID-19 Condition: Stable Prescriptions: New dexamethasone 6 mg tablet 6 mg PO DAILY Qty: 7 RF: 0 No Action Zofran 4 mg tablet 4 mg PO Q6H PRN (Reason: nausea and vomiting) Qty: 20 RF: 0 Colace 100 mg capsule 100 mg PO BID Qty: 30 RF: 0 Discharge Orders: Discharge ED (Routine); Ordered 11/20/20 Ordered By: Prabhjot Hagen Other Ambulatory Orders: DME: Oxygen (Order) Location: None Selected Ordered By: Prabhjot Hagen Referrals: Elissa Rdz APN [Primary Care Provider] - Patient Instructions: Opioid Safety Activity Restrictions/Additional Instructions: Maintain self quarantine until Covid results are back. Return if you have further problems. Coding Level of Care Code ED Iv Therapy Nurse for [facility] Fwd Exam Comprehensive
[2020-11-20 09:12] VITALS: BP 107/72; PULSE 76; RESP 18; TEMP 36.9; O2SAT 94; BMI 25.0
[2020-11-20 09:23] VITALS: PULSE 82; RESP 18; O2SAT 90
[2020-11-20 09:48] VITALS: O2SAT 87; O2SAT 92; O2SAT 93
[2020-11-20 11:10] VITALS: BP 129/85; PULSE 75; RESP 18; O2SAT 96
[2020-11-20 12:35] VITALS: BP 115/74; PULSE 87; O2SAT 90
[2020-11-21 14:36] LABS: Coronavirus Test Green County Detected
--- NOTE | 2020-11-22 07:54 | PC.NURSE ---
spoke with pt and gave her COVID results
== END 2020-11-20 12:36 | disposition home or self-care (01) ==
PROVIDERS: Emergency Provider Family Medicine; PCP Nurse Practitioner
DX: U07.1 COVID-19 (principal)
CPT/HCPCS: 71045; 87635; 99282

== ENCOUNTER 2021-05-08 09:51 | Outpatient (CLI) | payer OTHER, SELFPAY ==
--- NOTE | 2021-05-08 10:11 | MM_ITS ---
WS: [id number] BILATERAL SCREENING DIGITAL MAMMOGRAM WITH CAD HISTORY: SCREENING COMPARISON: 11/29/2019 and 08/30/2018 and 08/26/2017 Bilateral CC and MLO views submitted. Computer aided detection analyzed. Breast composition: There are scattered areas of fibroglandular density. No suspicious masses, microc alcifications or architectural distortion. MM/[place] [id number] IMPRESSION: BI-RADS: 1-Negative FOLLOW UP: 1 Year Follow-up
== END 2021-05-08 09:52 | disposition home or self-care (01) ==
LOC: RADSHAW 10:00
PROVIDERS: PCP Nurse Practitioner; Visit Provider Nurse Practitioner
DX: Z12.31 Encounter for screening mammogram for malignant neoplasm of breast (principal)
CPT/HCPCS: 77067

== ENCOUNTER 2022-06-26 07:39 | Outpatient (CLI) | payer OTHER, SELFPAY ==
--- NOTE | 2022-06-26 07:53 | MM_ITS ---
WS: [id number] BILATERAL SCREENING DIGITAL TOMOSYNTHESIS MAMMOGRAM WITH CAD HISTORY: SCREENING COMPARISON: 05/08/2021 and 11/29/2019 Bilateral CC and MLO views with tomosynthesis and synthetic mammography submitted. Computer aided det ection analyzed. Breast composition: There are scattered areas of fibroglandular density. No suspicious masses, microc alcifications or architectural distortion. MM/[id number] IMPRESSION: BI-RADS: 1-Negative FOLLOW UP: 1 Year Follow-up
== END 2022-06-26 07:40 | disposition home or self-care (01) ==
LOC: RAD 07:44
PROVIDERS: PCP Nurse Practitioner; Visit Provider Nurse Practitioner Family
DX: Z12.31 Encounter for screening mammogram for malignant neoplasm of breast (principal)
CPT/HCPCS: 77063; 77067

== ENCOUNTER 2022-10-30 06:47 | Day surgery (SDC) | payer OTHER, SELFPAY ==
[2022-10-27 10:51] VITALS: BMI 31.3
[2022-10-30] MEDS: sodium chloride 0.9% 1,000 ML 30 ML IV (07:02)
[2022-10-30 07:03] VITALS: BP 116/74; PULSE 50; RESP 16; TEMP 36.2; O2SAT 98
--- NOTE | 2022-10-30 07:40 | ANES.PREANE2 ---
Pre-Anesthetic Assessment Height/Weight: Height 1.7 m Weight 90.718 kg Temp Pulse Resp BP Pulse Ox O2 Del Method 97.2 F L 50 L 16 116/74 98 Room Air 10/30/22 07:03 10/30/22 07:03 10/30/22 07:03 10/30/22 07:03 10/30/22 07:03 10/30/22 07:03 Preop Diagnosis: screening, family history colon CA Operation Date: 10/30/22 08:00 Proposed Procedures p : 61885 colon Z80.0(Not Applicable) - Jewel Hoff DO Was Beta León taken within 24 hours: N/A Was Clonidine taken within 24 hours: N/A Last intake: Intake Last Liquid Date 10/29/22 Last Liquid Time 22:00 Last Solid Date 10/28/22 Last Solid Time 22:00 Social No alcohol and No tobacco Exam alert, oriented x 3, clear to auscultation bilaterally and regular rate & rhythm Airway Submandibular: within normal limits Cervical ROM: within normal limits Mallampati: Class I History/ROS No significant history except as noted and No significant complaints Anesthetic Plan ASA status: 1 Anesthesia: Anesthesia Evaluation and MAC Risk of > 500 ml blood loss (7ml/kg in children): Yes, adequate IV access and fluids planned Medications/Allergies Home Medications Medication Instructions Recorded Confirmed Last Taken Type No Known Home Medications 09/15/22 10/30/22 Unknown History Allergies Allergy/AdvReac Type Severity Reaction Status Date / Time No Known Allergies Allergy Verified 10/30/22 07:00 Current Medications Generic Name Dose Route Start Last Admin Trade Name Freq PRN Reason Stop Dose Admin Sodium Chloride 1,000 mls @ 30 mls/hr 10/30/22 07:00 10/30/22 07:02 Sodium Chloride 0.9% IV 10/31/22 06:59 30 mls/hr .Q24H STEPHON Administration PFSH Anesthesia Medical History COVID-19 Surgical History History of bladder suspension procedure S/P laparoscopic appendectomy (06/17/20) S/P partial hysterectomy Status post colonoscopy Status post shoulder surgery Family History Mother Diabetes Heart disease Cancer colon cancer Father Diabetes Heart disease Social History Smoking and tobacco status: never smoked Alcohol intake: never Data Anesthesia Cardiac Studies: No Data to Display
--- NOTE | 2022-10-30 07:56 | PM.HP ---
Providers/Chief Complaint Primary Care Provider: Tasneem Monteiro MD Chief Complaint: Z80.0 History of Present Illness Nirmala Bales is a 62 year old female here for colonoscopy Medications/Allergies Home Medications Medication Instructions Recorded Confirmed Last Taken Type No Known Home Medications 09/15/22 10/30/22 Unknown History Allergies Allergy/AdvReac Type Severity Reaction Status Date / Time No Known Allergies Allergy Verified 10/30/22 07:00 PFSH Acute PFSH: Medical History COVID-19 Surgical History History of bladder suspension procedure S/P laparoscopic appendectomy (06/17/20) S/P partial hysterectomy Status post colonoscopy Status post shoulder surgery Family History Mother Diabetes Heart disease Cancer colon cancer Father Diabetes Heart disease Social History Smoking and tobacco status: never smoked Alcohol intake: never Vitals/I&O/Wt Last Vital Signs Temp 97.2 F L 10/30/22 07:03 Pulse 50 L 10/30/22 07:03 Resp 16 10/30/22 07:03 BP 116/74 10/30/22 07:03 Pulse Ox 98 10/30/22 07:03 O2 Del Method Room Air 10/30/22 07:03 A&P Assessment and plan (1) Family history of colon cancer: Plan Screening colonoscopy Attestations Medical Necessity Statement*: Home Coding Level of Care Code Acute Code for Chg Fwd Diagnoses Family history of colon cancer Z80.0
[2022-10-30 08:29] VITALS: BP 112/69; PULSE 66; RESP 14; TEMP 36.1; O2SAT 98
[2022-10-30 08:42] VITALS: BP 104/63; PULSE 56; RESP 18; O2SAT 100
--- NOTE | 2022-10-30 12:37 | ANE.PACU2 ---
Inpatient post-anesthesia follow up: Airway intact: Yes Vital signs: Temperature 97.0 F Pulse Rate 56 Respiratory Rate 18 Blood Pressure 104/63 Pulse Oximetry 100 Oxygen Delivery Me thod Room Air Oxygen Flow Rate Fraction of Inspir ed Oxygen Hydration adequate: Yes Nausea and vomiting: No Pain level: 2 Mental status: Baseline
== END 2022-10-30 08:55 | disposition home or self-care (01) ==
PROVIDERS: PCP Family Medicine; Visit Provider Surgery
PROC: 0DJD8ZZ Inspection of Lower Intestinal Tract, Via Natural or Artificial Opening Endoscopic (ICD-10-PCS; CPT 45378; principal; 2022-10-30 08:00)
DX: Z12.11 Encounter for screening for malignant neoplasm of colon (principal); Z80.0 Family history of malignant neoplasm of digestive organs; K57.30 Diverticulosis of large intestine without perforation or abscess without bleeding
CPT/HCPCS: 45378; J2704; J7030

== ENCOUNTER 2023-07-19 12:40 | Outpatient (CLI) | payer OTHER, SELFPAY ==
--- NOTE | 2023-07-19 12:44 | MM_ITS ---
WS: [id number] BILATERAL 3D TOMOSYNTHESIS DIGITAL SCREENING MAMMOGRAPHY WITH CAD CLINICAL INFORMATION: SCREENING HISTORY: Screening mammogram. No current complaints. COMPARISON: 2022 TECHNIQUE: Bilateral CC and MLO views. FINDINGS: Scattered fibroglandular densities bilaterally. No suspicious focal mass, asymmetry, calcifications, or architectural distortion. No evidence of malignancy. A few incidental punctate calcifications. IMPRESSION: MM/[place] [id number] BI-RADS: 2-Benign FOLLOW UP: 1 Year Follow-up Recommend return to annual screening mammography.
== END 2023-07-19 12:41 | disposition home or self-care (01) ==
LOC: RAD 12:40
PROVIDERS: PCP Family Medicine; Visit Provider Nurse Practitioner Family
DX: Z12.31 Encounter for screening mammogram for malignant neoplasm of breast (principal)
CPT/HCPCS: 77063; 77067

== ENCOUNTER 2024-07-19 13:36 | Outpatient (CLI) | payer OTHER, SELFPAY ==
--- NOTE | 2024-07-19 | MM_ITS ---
WS: [id number] Bilateral screening 3D tomosynthesis digital mammogram, 07/19/2024 1:40 PM Clinical Data: ANNUAL SCREENING Comparison: 07/19/2023, 06/26/2022, 05/08/2021, 11/29/2019, 08/30/2018, 08/26/2017, 08/24/2016. Findings: No spiculated masses or clustered calcifications are seen. There are no secondary signs of carcinoma. MM/MM scr BI tomosynthesis [id number] Impression: Negative bilateral mammogram unchanged. Recommend annual screening mammograms. BIRADS: 1 - Negative. FOLLOW UP: 1 Year Follow-up DENSITY: There are scattered areas of fibroglandular density. The CAD bag checker was used
== END 2024-07-19 13:37 | disposition home or self-care (01) ==
PROVIDERS: PCP Family Medicine; Visit Provider Nurse Practitioner Family
DX: Z12.31 Encounter for screening mammogram for malignant neoplasm of breast (principal); R92.323 Mammographic fibroglandular density, bilateral breasts
CPT/HCPCS: 77063; 77067